=== PATIENT | male | born 1960 | race Two or more races ===

== ENCOUNTER 2017-09-28 23:05 | Emergency (ER) | payer SELFPAY ==
[2017-09-29] MEDS ORDERED: LIDOCAINE 1% INJ-PF (10 MG/ML) 30 ML SDV INJ ONE (01:32)
[2017-09-29] MEDS ORDERED: DIPH/PERTUSS(ACELL)/TETANUS VAC/PF 0.5 ML SYR (>=10YO) IM ONE (01:33)
--- NOTE | 2017-09-29 01:33 | ER Document Report ---
ED Wound - General Chief Complaint: Laceration Stated Complaint: TRIP AND LACERATED RIGHT ARM Time Seen by Provider: 09/29/17 00:52 Notes: Patient was working in an attic when he slipped through the ceiling. Did not fall all the way through but right arm was dragged over some exposed nails. Laceration to the right forearm and right elbow with scratches on the right shoulder. No loss of consciousness. Denies any other significant injuries. Did not fall all the way to the ground. Was able to ambulate to the ER. Laceration approximately 3 cm on the right arm and superficial laceration of 3 cm on the right elbow. TRAVEL OUTSIDE OF THE [place] IN LAST 30 DAYS: No - HPI Patient complains to provider of: Abrasion, Laceration - Related Data Allergies/Adverse Reactions: No Known Allergies Allergy (Unverified 09/28/17 23:17) Past Medical History - General Information source: Patient - Social History Smoking Status: Former Smoker Cigarette use (# per day): No - Uses vapor cigarette/E cigarettes Frequency of alcohol use: Occasional Drug Abuse: None Lives with: Family Family History: Reviewed & Not Pertinent Review of Systems - Review of Systems Constitutional: denies: Malaise, Weakness EENT: denies: Eye pain, Mouth pain Cardiovascular: denies: Chest pain, Palpitations Respiratory: denies: Cough, Hurts to breathe Gastrointestinal: denies: Abdominal pain, Vomiting Musculoskeletal: denies: Back pain, Joint pain, Muscle pain Skin: See HPI, Other - Lacerations, abrasions Physical Exam - Vital signs Vitals: Temp Pulse Resp BP Pulse Ox 98.5 F 104 H 18 139/97 H 97 09/28/17 23:27 09/28/17 23:27 09/28/17 23:27 09/28/17 23:27 09/28/17 23:27 Interpretation: Normal - Notes Notes: Well appearing in no acute distress - HEENT Head: Normocephalic, Atraumatic Eyes: Normal Neck: Normal, Supple - Respiratory Respiratory status: No respiratory distress Chest status: Nontender Breath sounds: Normal Chest palpation: Normal - Cardiovascular Rhythm: Regular Heart sounds: Normal auscultation Murmur: No - Extremities General upper extremity: Normal inspection, Nontender, Normal color, Normal ROM , Normal temperature General lower extremity: Normal inspection, Nontender, Normal color, Normal ROM , Normal temperature, Normal weight bearing. No: Sally's sign - Skin Skin Temperature: Warm Skin Moisture: Dry Skin Color: Other - There is a 3 cm laceration, linear to the right forearm. There is a 3 cm superficial laceration to the right elbow area there are superficial scratches noted to the right shoulder and right flank Course - Vital Signs Vital signs: Temp Pulse Resp BP Pulse Ox 98.5 F 104 H 18 139/97 H 97 09/28/17 23:27 09/28/17 23:27 09/28/17 23:27 09/28/17 23:27 09/28/17 23:27 Procedures - Laceration/Wound Repair Right Lower Arm Time completed: 03:26 Wound length (cm): 3 Wound's Depth, Shape: Linear Laceration pre-procedure: Chloraprep applied, Shur-Clens applied Anesthetic type: 1% Lidocaine Volume Anesthetic (mLs): 8 Wound explored: Clean Irrigated w/ Saline (mLs): 1,000 Wound Repaired With: Sutures Suture Size/Type: 4:0, Prolene Number of Sutures: 2 Post-procedure wound care: Sterile dressing applied Post-procedure NV exam normal: Yes Complications: No Notes: 09/29/17 03:27 1 running suture, one simple interrupted suture 09/29/17 03:28 Second laceration to the right elbow repaired with Dermabond. No complications. Second laceration to the elbow measured 3 cm. Discharge - Discharge Clinical Impression: Laceration of right upper arm without complication Qualifiers: Encounter type: initial encounter Qualified Code(s): S41.111A - Laceration without foreign body of right upper arm, initial encounter Condition: Good Disposition: HOME, SELF-CARE Instructions: Antibiotic Ointment Protection ([facility]), Laceration Care ([facility]), Tetanus Immunization Given ([facility]) Additional Instructions: Return in 7-10 days for suture removal. Return sooner if he notices any redness , streaking, worsening pain or any other symptoms. Referrals: [facility],NO [Primary Care Provider] - Follow up as needed
[2017-09-29 03:49] VITALS: BP 116/72
== END 2017-09-29 03:48 | disposition home or self-care (01) ==
LOC: ER 23:05
DX: S41.111A Laceration without foreign body of right upper arm, initial encounter (principal); S51.811A Laceration without foreign body of right forearm, initial encounter; S51.011A Laceration without foreign body of right elbow, initial encounter; S30.811A Abrasion of abdominal wall, initial encounter; S40.211A Abrasion of right shoulder, initial encounter; W13.3XXA Fall through floor, initial encounter; W45.0XXA Nail entering through skin, initial encounter
CPT/HCPCS: 90471; 90715; 99282

== ENCOUNTER 2018-06-26 17:04 | Emergency (ER) | payer SELFPAY ==
--- NOTE | 2018-06-26 17:40 | ER Document Report ---
ED Headache - General Chief Complaint: Headache Stated Complaint: HEADACHE Time Seen by Provider: 06/26/18 17:24 Mode of Arrival: Ambulatory Information source: Patient Notes: 58-year-old male presented to ED for a laceration to the posterior scalp when a dresser drawer full of nails and other stuff fell off of a shelf and hit him in the head while he was kneeling on the floor in his shed under the shelf. He states it happened about 430 5:00 yesterday evening. States he is stubborn and did not come to the emergency room then but he had a pounding headache last night and has been unsteady on his feet and having blurred vision today. He states his tetanus is up-to-date he had it very recently. A CAT scan will be ordered and patient will be reevaluated. TRAVEL OUTSIDE OF THE [place] IN LAST 30 DAYS: No - HPI Patient complains to provider of: Headache Patient reports: Other - Head injury yesterday Onset: Yesterday Timing: Still present Quality of pain: Sharp, Stabbing, Throbbing Severity: Severe Pain Level: 5 Associated symptoms: Dizzy, Double/blurred vision. denies: Nausea/vomiting, Tingling/numb sensation, Trouble walking Exacerbated by: Light Similar symptoms previously: No Recently seen / treated by doctor: No - Related Data Allergies/Adverse Reactions: No Known Allergies Allergy (Verified 09/29/17 04:07) Past Medical History - General Information source: Patient - Social History Smoking Status: Current Every Day Smoker Cigarette use (# per day): Yes - 1/3 pack/day Chew tobacco use (# tins/day): No Smoking Education Provided: Yes - 4 minutes Frequency of alcohol use: Social Drug Abuse: None Occupation: Construction Lives with: Alone Family History: Reviewed & Not Pertinent Patient has suicidal ideation: No Patient has homicidal ideation: No - Past Medical History Cardiac Medical History: Reports: None Pulmonary Medical History: Reports: None EENT Medical History: Reports: None Neurological Medical History: Reports: None Endocrine Medical History: Reports: None Renal/ Medical History: Reports: None Malignancy Medical History: Reports None GI Medical History: Reports: None Musculoskeletal Medical History: Reports Hx Arthritis, Reports Hx Musculoskeletal Deformity, Reports Hx Musculoskeletal Trauma Skin Medical History: Reports None Psychiatric Medical History: Reports: None Traumatic Medical History: Reports: None Infectious Medical History: Reports: None Past Surgical History: Reports: Hx Orthopedic Surgery - Right knee and low back surgery - Immunizations Immunizations up to date: Yes Hx Diphtheria, Pertussis, Tetanus Vaccination: Yes - 09/28/2017 Review of Systems - Review of Systems Constitutional: No symptoms reported EENT: Blurred vision Cardiovascular: No symptoms reported Respiratory: No symptoms reported Gastrointestinal: No symptoms reported Genitourinary: No symptoms reported Male Genitourinary: No symptoms reported Musculoskeletal: No symptoms reported Skin: Other - Laceration to the scalp yesterday Hematologic/Lymphatic: No symptoms reported Neurological/Psychological: Headaches Physical Exam - Vital signs Vitals: Temp Pulse Resp BP Pulse Ox 97.7 F 103 H 16 114/73 96 06/26/18 17:12 06/26/18 17:12 06/26/18 17:12 06/26/18 17:12 06/26/18 17:12 Interpretation: Normal - General General appearance: Appears well, Alert - HEENT Head: Ecchymosis, Tenderness, Other - Laceration to the posterior scalp that is scabbed over patient was hit in the head yesterday Eyes: Normal Pupils: PERRL Ears: Normal, Tragus laceration Tympanic membrane: Normal Sinus: Normal Nasal: Normal Mouth/Lips: Normal Pharynx: Normal Neck: Normal - Respiratory Respiratory status: No respiratory distress Chest status: Nontender Breath sounds: Normal Chest palpation: Normal - Cardiovascular Rhythm: Regular Heart sounds: Normal auscultation Murmur: No - Abdominal Inspection: Normal Distension: No distension Bowel sounds: Normal Tenderness: Nontender Organomegaly: No organomegaly - Back Back: Normal, Nontender, Scars - Extremities General upper extremity: Normal inspection, Nontender, Normal color, Normal ROM, Normal temperature General lower extremity: Normal inspection, Nontender, Normal color, Normal ROM, Normal temperature, Normal weight bearing. No: Sally's sign Knee: Other - Scars from previous surgery - Neurological Neuro grossly intact: Yes Cognition: Normal Orientation: AAOx4 Stanley Coma Scale Eye Opening: Spontaneous Stanley Coma Scale Verbal: Oriented Lianet Coma Scale Motor: Obeys Commands Lianet Coma Scale Total: 15 Speech: Normal Motor strength normal: LUE, RUE, LLE, RLE Sensory: Normal - Psychological Associated symptoms: Normal affect, Normal mood - Skin Skin Temperature: Warm Skin Moisture: Dry Skin Color: Normal Course - Re-evaluation Re-evalutation: 06/26/18 21:02 CT of head was negative. Patient was diagnosed with laceration to the scalp, head injury, and concussion syndrome. Patient was given a Crescent dispense pack for his pain and instructed to follow-up with his primary doctor. Patient's friend stated that he would monitor the patient for his head injury. - Vital Signs Vital signs: Temp Pulse Resp BP Pulse Ox 97.9 F 100 18 118/70 96 06/26/18 18:31 06/26/18 18:31 06/26/18 18:31 06/26/18 18:31 06/26/18 18:31 - Diagnostic Test Radiology reviewed: Image reviewed, Reports reviewed Discharge - Discharge Clinical Impression: Laceration of head Qualifiers: Encounter type: initial encounter Location of open wound of head: scalp Foreign body presence: without foreign body Qualified Code(s): S01.01XA - Laceration without foreign body of scalp, initial encounter Concussion Qualifiers: Encounter type: initial encounter Loss of consciousness presence/duration: without LOC Qualified Code(s): S06.0X0A - Concussion without loss of consciousness, initial encounter Head injury Qualifiers: Encounter type: initial encounter Qualified Code(s): S09.90XA - Unspecified injury of head, initial encounter Condition: Stable Disposition: HOME, SELF-CARE Instructions: Family Physicians / Practices Additional Instructions: Head Injury Precautions At this point, there is no evidence that your head injury is serious. Observation is necessary, however. Take only clear liquids for the first few hours, unless told otherwise by the doctor. If no pain medication was prescribed, you may take acetaminophen according to the directions on the bottle. Do not take any medication that may alter your level of alertness (unless you've discussed it with the doctor first). Limit activity for the first 24 hours. Bed rest is best. During the first 24 hours, check to see approximately every two to three hours that the patient is easily arousable, responds normally, and can perform common tasks such as walking without difficulty. Contact your doctor or go to the hospital if any of the following things occur: Persistent vomiting, difficulty in arousing the patient, worsening or continued headache, or failure to improve as expected. Head injuries can cause symptoms that persist for a few days or even a few weeks. Scalp Laceration A scalp laceration requires little care. Dressings are applied only if severe bleeding or a large flap are present. Usually, once the cut is sutured, you can ignore it. Simply comb the hair over top of it to hide the stitches and go about your usual routine. You can shampoo your hair as needed starting tomorrow. If you need to wear a special hat or protective helmet for work, be careful that it doesn't press on the area. If crusting is bothersome, you can soften the crusts with Polysporin ointment, then shampoo. Infection in a scalp laceration is rare. If any signs of infection occur (swelling, redness, increasing tenderness, red streaks, tender lumps in the neck on the side of the laceration, or fever), see the doctor immediately. Concussion You have suffered a concussion -- a temporary loss of certain brain functions due to a mild brain injury. The recovery is usually rapid and complete. The temporary problems occurring with a concussion can include loss of consciousness, dizziness, nausea, vomiting, and confusion. Repeat concussions can cause brain damage. In the future, avoid activities that will cause a blow to your head. Wear a helmet for sports such as snowboarding, biking, or skating. It's important that someone be with you for the first 24 hours. During this time, do not exercise or drive a vehicle. Do not take any pain medication stronger than acetaminophen unless prescribed by the physician. Any significant changes should be reported immediately to the physician. Signs of a problem may include: (1) Mental confusion (2) Incoordination or staggering (3) Repeated or forceful vomiting (4) Clear or bloody drainage from ear, mouth, or nose (5) Severe headache, not relieved by acetaminophen or prescribed pain medication (6) Failure to improve in 24 hours Acetaminophen Acetaminophen may be taken for pain relief or fever control. It's much safer than aspirin, offering a wider range of "safe" dosages. It is safe during . Some brand names are Tylenol, Panadol, Datril, Anacin 3, Tempra, and Liquiprin. Acetaminophen can be repeated every four hours. The following are maximum recommended dosages: WEIGHT Dose Drops Elixir Chewable(80mg) (LBS.) drprs=droppers tsp=teaspoon 6 40 mg .4 ml (1/2) 6-11 80 mg .8 ml (full) 1/2 tsp 1 tab 12-16 120 mg 1 1/2 drprs 3/4 tsp 1 1/2 tabs 17-23 160 mg 2 drprs 1 tsp 2 tabs 24-30 240 mg 3 drprs 1 1/2 tsp 3 tabs 30-35 320 mg 2 tsp 4 tabs 36-41 360 mg 2 1/4 tsp 4 1/2 tabs 42-47 400 mg 2 1/2 tsp 5 tabs 48-53 480 mg 3 tsp 6 tabs 54-59 520 mg 3 1/4 tsp 6 1/2 tabs 60-64 560 mg 3 1/2 tsp 7 tabs 65-70 600 mg 3 3/4 tsp 7 1/2 tabs 71-76 640 mg 4 tsp 8 tabs 77-82 720 mg 4 1/2 tsp 9 tabs 83-88 800 mg 5 tsp 10 tabs >89 pounds or adults 650 mg to 900 mg Acetaminophen can be repeated every four hours. Maximum daily dose not to exceed 4000 mg. These maximum recommended dosages are slightly higher than the dosages written on the product container, but these dosages are very safe and well below the toxic dosage for acetaminophen. Ice Packs Apply ice packs frequently against the painful area. Many different schedules are recommended, such as "20 minutes on, 20 minutes off" or "one hour ice, two hours rest." If you need to work, you may need to go longer between ice treatments. You should plan to have the area ice packed AT LEAST one fourth of the time. The ice should be applied over the wrap, tape, or splint, or over a layer of cloth -- not directly against the skin. Some ice bags have a built-in cloth and can be put directly on the skin. Antinausea Medication You have been given a medication to suppress nausea and vomiting. This type of medication can be given as a shot, pill, or suppository. It will usually last for many hours. Pills and shots usually last six to eight hours, suppositories last about 12 hours. For the typical illness, only one or two doses of the medication may be necessary. Mild lightheadedness may occur. This type of medicine can cause drowsiness. Do not drive or operate dangerous machinery while under its influence. Do not mix with alcohol. See your doctor at once if you have muscle spasms or tightness, or uncontrollable motions (particularly of the neck, mouth, or jaw). Persistent vomiting or severe lightheadedness should also be evaluated by the physician. Oral Narcotic Medication You have been given a Crescent disp pack for pain control. This medication is a narcotic. It's best taken with food, as nausea can result if taken on an empty stomach. Don't operate machinery or drive within six hours of taking this medication. Do not combine this medicine with alcohol, or with any medication which can cause sedation (such as cold tablets or sleeping pills) unless you get permission from the physician. Narcotics tend to cause constipation. If possible, drink plenty of fluids and eat a diet high in fiber and fruits. FOLLOW-UP CARE: If you have been referred to a physician for follow-up care, call the physicians office for an appointment as you were instructed or within the next two days. If you experience worsening or a significant change in your symptoms, notify the physician immediately or return to the Emergency Department at any time for re-evaluation. Prescriptions: Ondansetron [Zofran Odt 4 mg Tablet] 1 tab PO Q6H #15 tab.rapdis Forms: Smoking Cessation Education, Return to Work
--- NOTE | 2018-06-26 18:21 | RADIOLOGY REPORT (SQ) ---
EXAM DESCRIPTION: CT HEAD WITHOUT COMPLETED DATE/TIME: 06/26/2018 6:00 pm REASON FOR STUDY: Head injury yesterday, dizziness, blurred vision COMPARISON: None. TECHNIQUE: Axial images acquired through the brain without intravenous contrast. Images reviewed wi th bone, brain and subdural windows. Additional sagittal and coronal reconstructions were generated. Images stored on PACS. All CT scanners at this facility use dose modulation, iterative reconstruction, and/or weight based d osing when appropriate to reduce radiation dose to as low as reasonably achievable (ALARA). [facility]: Dose Right [facility]: CareDose [facility]: Dose Right [facility]: Teradose 4D [facility]: [employer] RADIATION DOSE: CT Rad equipment meets quality standard of care and radiation dose reduction techniq ues were employed. CTDIvol: 53.2 mGy. DLP: 964 mGy-cm. mGy. LIMITATIONS: None. FINDINGS: VENTRICLES: Normal size and contour. CEREBRUM: No masses. No hemorrhage. No midline shift. No evidence for acute infarction. Normal gra y/white matter differentiation. No areas of low density in the white matter. CEREBELLUM: No masses. No hemorrhage. No alteration of density. No evidence for acute infarction. EXTRAAXIAL SPACES: No fluid collections. No masses. ORBITS AND GLOBE: No intra- or extraconal masses. Normal contour of globe without masses. CALVARIUM: No fracture. PARANASAL SINUSES: No fluid or mucosal thickening. SOFT TISSUES: No mass or hematoma. OTHER: No other significant finding. IMPRESSION: No acute intracranial pathology. EVIDENCE OF ACUTE STROKE: NO. COMMENT: Quality ID # [id number]: Final reports with documentation of one or more dose reduction techniques (e.g., Automated exposure control, adjustment of the mA and/or kV according to patient size, use of iterative reconstruction technique) TECHNICAL DOCUMENTATION: JOB ID: [id number] [employer]- All Rights Reserved Reading location - IP/workstation name: [email or web address]
[2018-06-26] MEDS ORDERED: HYDROCODONE/ACETAMINOPHEN 5-325 MG (6 TAB/ER DISP) PO PRN (18:36)
[2018-06-26 18:39] VITALS: BP 118/70
== END 2018-06-26 18:43 | disposition home or self-care (01) ==
LOC: ER 17:04
DX: S06.0X0A Concussion without loss of consciousness, initial encounter (principal); S01.01XA Laceration without foreign body of scalp, initial encounter; W20.8XXA Other cause of strike by thrown, projected or falling object, initial encounter; Y92.89 Other specified places as the place of occurrence of the external cause; R51 Headache; H53.8 Other visual disturbances; R26.81 Unsteadiness on feet; R42 Dizziness and giddiness; F17.210 Nicotine dependence, cigarettes, uncomplicated; Z71.6 Tobacco abuse counseling
CPT/HCPCS: 70450; 99284; 99406